=== PATIENT | female | born 2005 | race Caucasian/White ===

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

== ENCOUNTER 2023-11-14 23:06 | Observation (INO) | payer OTHER, SELFPAY ==
[2023-11-14] VITALS (54 sets, daily range): BP systolic 86–127; BP diastolic 21–110; PULSE 76–162; RESP 17–24; TEMP 36.3–38.3; O2SAT 92–100; BMI 27.7
[2023-11-14 14:56] LABS: Basophils Percent Auto 0.3 % (0.2-1.2); Eosinophils Percent Auto 0.5 % (0-4.4); Hematocrit 35.1 % (37.0-47.0); Hemoglobin 12.4 g/dL (12.0-15.0); Immature Granulocyte Absolute 0.02 K/mm3 (0.00-0.031); Immature Granulocyte Percent A 0.3 % (0-0.5); Lymphocytes Absolute Auto 1.41 K/mm3 (0.9-3.2); Lymphocytes Percent Auto 22.1 % (18.3-44.2); Mean Corpuscular HGB Conc 35.3 g/dl (32-36); Mean Corpuscular Volume 87.8 fl (80-100); Mean Platelet Volume 11.2 fl (7.4-10.4); Monocytes Absolute Auto 0.3 K/mm3 (0.1-0.6); Neutrophils Absolute Auto 4.6 K/mm3 (1.3-6.7); Neutrophils Percent Auto 71.8 % (45.5-73.1); Platelet Count Result 230 k/mm3 (150-375); Red Cell Distribution Width 14.3 % (11.5-14.5); White Blood Count 6.4 K/mm3 (4.5-10.0)
[2023-11-14 15:17] LABS: Hemoglobin A1C 4.7 % (<5.7)
[2023-11-14 15:25] LABS: Rapid Plasma Reagin Non-Reactive (NonReactive)
[2023-11-14] MEDS: miSOPROStol 200 MCG TABLET 400 MCG VAGINAL ×2 (15:37→19:36)
[2023-11-14 15:47] LABS: HIV 1/2 Ab P24 Ag Result Negative (Negative)
[2023-11-14 15:54] LABS: Free T4 Free Thyroxine 1.07 ng/mL (0.78-2.19)
[2023-11-14 16:45] LABS: Rubella IgG Antibody > 110.0 IU/ML
[2023-11-14 18:39] LABS: Amphetamine Screen Urine Negative (Negative); Barbiturate Screen Urine Negative (Negative); Benzodiazepines Screen Urine Negative (Negative); Cannabinoid Screen Urine Negative (Negative); Cocaine Screen Urine Negative (Negative); Methadone Screen Urine Negative (Negative); Opiate Screen Urine Negative (Negative); Phencyclidine Screen Urine Negative (Negative)
[2023-11-14] MEDS: HYDROcodone/acetaminophen (*CRX) 5-325 MG TABLET 1 TAB PO (19:42)
[2023-11-14] MEDS: fentaNYL CITRATE INJ (*CRX) 100 MCG/2 ML VIAL 50 MCG IV PUSH ×2 (19:57→20:17)
--- NOTE | 2023-11-14 21:16 | PM.IMHP ---
H&P: HPI History of Present Illness Date/Time: 11/14/23 16:45 Chief Complaint: miscarriage at 16 weeks Narrative: Patient is a 18 year old at 17w1d who presents for induction of labor indicated for demise. Patient presented for routine OB visit today and was found to have a miscarriage, measuring 13w4d by CRL. Demise was confirmed on ultrasound with no color flow in the fetus. She denies bleeding or contractions. She was counseled by Dr. Pisano in office regarding D&C vs induction of labor and she would like to proceed with induction of labor. complicated by bicornuate uterus and hx of c section x1. Review of Systems Review of Systems: All systems reviewed & are unremarkable except as noted in HPI and below PMFSH Past Medical History Medical History Anxiety Breech presentation Depression contractions Family History Family History Mother Psoriasiform eczema Social History Social History Social History: vaped to prior to and is now decreased to occasional Smoking status: Former smoker Second hand tobacco smoke exposure: Yes Substance use: former Do You Feel Safe in your Home?: Yes Lack of Transportation: No Lack of Food: Never True Current Housing: I Have Housing Concerned About Future Housing: No Difficulty Paying Gas/Electric Bills: No Difficulty Paying for Meds: No Currently Unemployed: No Education: High School Diploma/GED Difficulty w/ Childcare or Family Care: No Spiritual care concerns: No Meds Home Medications and Allergies Home Medications Medication Instructions Recorded Confirmed Type sertraline 50 mg tablet (Zoloft) 50 mg PO DAILY 11/14/23 11/14/23 History Allergies Allergy/AdvReac Type Severity Reaction Status Date / Time No Known Allergies Allergy Verified 10/06/20 05:15 Vital Signs Vital Signs - 24 hr 11/14/23 15:12 11/14/23 15:45 11/14/23 15:59 Temperature Pulse Rate 76 83 Blood Pressure 95/63 L 104/63 Pulse Oximetry Oxygen Delivery Room Air 11/14/23 16:01 11/14/23 16:06 11/14/23 16:15 Temperature 97.4 F L Pulse Rate 77 77 Blood Pressure 98/60 L 103/68 Pulse Oximetry Oxygen Delivery 11/14/23 16:30 11/14/23 16:45 11/14/23 17:01 Temperature Pulse Rate 112 H 98 Blood Pressure 115/80 127/110 H 109/78 Pulse Oximetry Oxygen Delivery 11/14/23 17:15 11/14/23 17:31 11/14/23 17:45 Temperature Pulse Rate 87 86 88 Blood Pressure 122/81 111/68 109/75 Pulse Oximetry Oxygen Delivery 11/14/23 19:42 11/14/23 19:57 11/14/23 20:00 Temperature Pulse Rate 91 88 Blood Pressure 116/90 115/84 Pulse Oximetry 100 Oxygen Delivery 11/14/23 20:02 11/14/23 20:07 11/14/23 20:12 Temperature Pulse Rate Blood Pressure Pulse Oximetry 100 100 98 Oxygen Delivery 11/14/23 20:16 11/14/23 20:19 11/14/23 20:22 Temperature Pulse Rate Blood Pressure Pulse Oximetry 92 100 98 Oxygen Delivery 11/14/23 20:27 11/14/23 19:50 11/14/23 20:30 Temperature 100.9 F H Pulse Rate 113 H Blood Pressure 126/96 H Pulse Oximetry 98 Oxygen Delivery 11/14/23 20:32 11/14/23 20:37 11/14/23 20:42 Temperature Pulse Rate Blood Pressure Pulse Oximetry 100 100 94 Oxygen Delivery 11/14/23 20:47 11/14/23 20:52 11/14/23 20:57 Temperature Pulse Rate Blood Pressure Pulse Oximetry 98 98 95 Oxygen Delivery 11/14/23 21:02 Temperature Pulse Rate Blood Pressure Pulse Oximetry 97 Oxygen Delivery Exam Const: General: comfortable and no acute distress HENMT: Mouth: Yes moist mucous membranes Resp: Effort & Inspection: normal respiratory effort Cardio: Rate: regular rate GI: Inspection: non-distended GI Palp: Yes Soft to pal
--- NOTE | 2023-11-14 21:32 | PM.OBPRVD ---
OB - Vaginal Delivery Note Procedure Delivery date: 11/14/23 Events: Other (miscarriage at 17 weeks) Induction method: Per Misoprostol Protocol Route of delivery: Episiotomy description: None Laceration Description: None Quantitative Blood Loss (ml): 200 Anesthesia type: IV Fentanyl Complications: Other complications (retained placenta) Narrative: See H&P and notes for details on patient's admission and labor. The patient reported increased pressure and on sterile vaginal exam, parts were palpated in the vagina and the fetus was expelled. The umbilical cord was cut and the fetus was wrapped in a blanket. The placenta did not deliver spontaneously with the fetus. The placenta was not easily palpated on vaginal exam following delivery. 200cc of clots were expressed with exam. Discussed medical vs surgical management of retained placenta, and patient desires surgical management with D&C. Risks and benefits were discussed. [place] Baby Date of : 11/14/23 Gestational Age by Date: 17 gender: Female Placenta delivery description: Curettage
--- NOTE | 2023-11-14 21:42 | WPDANESEPPF ---
Anes - Initial Pre Proc Eval Procedure: Suction D & C Date/Time: 11/14/23 21:42 Surgeon: Gm Toney MD Pre Op Diagnosis: retained placenta Pre Op Diagnosis: IUFD Patient Data Age: 18 Gender: F Height: 1.68 m Weight: 78 kg Last Vital Signs Temp 38.3 C H 11/14/23 19:50 Pulse 122 H 11/14/23 21:31 BP 112/66 11/14/23 21:31 Pulse Ox 97 11/14/23 21:41 O2 Del Method Room Air 11/14/23 15:12 Allergies Allergy/AdvReac Type Severity Reaction Status Date / Time No Known Allergies Allergy Verified 10/06/20 05:15 Home Medications Medication Instructions Recorded Confirmed Type sertraline 50 mg tablet (Zoloft) 50 mg PO DAILY 11/14/23 11/14/23 History Laboratory Tests 11/14/23 11/14/23 14:02 14:03 WBC 6.4 K/mm3 (4.5-10.0) RBC 4.00 L M/mm3 (4.2-5.4) Hgb 12.4 D g/dL (12.0-15.0) Hct 35.1 L % (37.0-47.0) MCV 87.8 fl (80-100) MCH 31.0 pg (26-34) MCHC 35.3 g/dl (32-36) RDW 14.3 % (11.5-14.5) Plt Count 230 k/mm3 (150-375) MPV 11.2 H fl (7.4-10.4) Immature Gran % (Auto) 0.3 % (0-0.5) Neut % (Auto) 71.8 % (45.5-73.1) Lymph % (Auto) 22.1 % (18.3-44.2) [place] % (Auto) 5.0 % (2.6-8.5) Eos % (Auto) 0.5 % (0-4.4) Baso % (Auto) 0.3 % (0.2-1.2) Lymph # (Auto) 1.41 K/mm3 (0.9-3.2) [place] # (Auto) 0.3 K/mm3 (0.1-0.6) Eos # (Auto) 0.0 K/mm3 (0-0.3) Baso # (Auto) 0.0 K/mm3 (0.0-0.1) Abs Immat Gran (auto) 0.02 K/mm3 (0.00-0.031) Absolute Neuts (auto) 4.6 K/mm3 (1.3-6.7) Absolute Nucleated RBC 0.000 K/mm3 (0.0-0.012) Nucleated RBC % 0.0 % (0.0-0.2) LA PTT Screen Pending LA PTT Comment Pending dRVVT Screen Pending Lupus Anticoag Interp Pending Hemoglobin A1c 4.7 % (<5.7) TSH 1.240 uIU/mL (0.465-4.680) Free T4 1.07 ng/mL (0.78-2.19) Urine Opiates Screen Negative (Negative) Urine Methadone Screen Negative (Negative) Ur Barbiturates Screen Negative (Negative) Ur Phencyclidine Scrn Negative (Negative) Ur Amphetamine Screen Negative (Negative) U Benzodiazepines Scrn Negative (Negative) Urine Cocaine Screen Negative (Negative) U Cannabinoids Screen Negative (Negative) Beta-2-GPI IgG Ab Pending Pending Beta-2-GPI IgA Ab Pending Pending Beta-2-GPI IgM Ab Pending Pending Phosphatidylserine Ab Pending Phosphatidylserine IgG Pending Phosphatidylserine IgA Pending Phosphatidylserine IgM Pending Anti-Cardiolipin IgG Ab Pending Pending Anti-Cardiolipin IgA Ab Pending Pending Anti-Cardiolipin IgM Ab Pending Pending RPR Non-reactive (NonReactive) CMV IgG Ab Pending CMV IgM Ab Pending HSV I Specific Ab Pending HSV II Specific Ab Pending HIV 1&2 Ab/P24 Ag 4thGn Negative (Negative) Parvovirus B19 IgG Intp Pending Parvovirus B19 IgM Intp Pending Rubella IgG Antibody > 110.0 IU/ML (10 - ) Toxoplasma IgG Ab Pending Toxoplasma IgM Ab Pending Add Miscellaneous Test Pending Blood Type O Positive Antibody Screen Negative Patient hx anesthesia problems: none Family hx anesthesia problems: none Results Review: All pre-operative results and documents have been reviewed as part of the pre-operative evaluation. [facility] Past Medical History Medical History Anxiety Breech presentation Depression contractions Family History Family History Mother Psoriasiform eczema Social History Social History Social
[2023-11-14] MEDS: LIDO 1%/EPINEPHRINE 1:100,000 50 ML VIAL 10 ML INFILTRATE (22:27)
--- NOTE | 2023-11-14 22:37 | PC.NURSE ---
Forensic Economist notified of delivery of demise.
[2023-11-14] MEDS: LACTATED RINGERS 1,000 ML 30 ML IV CONT (22:45)
--- NOTE | 2023-11-14 22:51 | W.PM.PROC2 ---
Procedure Note - Detailed Date of Procedure 11/14/23 Pre-op Diagnosis 17 week IUFD with retained placenta Post-op Diagnosis Same Procedure Performed suction D&C Surgeon Gm Toney MD Anesthesia General (with local paracervical block) Indications retained placenta s/p delivery of 17 week fetus Findings membranes visualized at external os at beginning of procedure; thin endometrial stripe on US at end of procedure with resolution of uterine bleeding Description of Procedure The patient was then taken to the operating room with IVFs running. She was placed in the dorsal supine position where she received general anesthesia without any difficulty.?? The patient was placed in the dorsal lithotomy position using johanna stirrups. EUA revealed the above findings. She was then prepped and draped in a normal sterile fashion. A time-out procedure was performed and all members of the OR team agreed on the patient and plan. A bivalved speculum was then inserted into the patient's vagina.?Prolapsed membranes were seen at the external os and ring forceps were used to tease the majority of the placental tissue out of the os intact. The anterior lip of the cervix was grasped with a ring forceps. The suction curette was tested outside the patient and found to be working properly.? The curette was then advanced into the intrauterine cavity and circumferentially removed.? All products of conception were removed until little tissue was seen passing through the tubing. A thin endometrial stripe was confirmed on BSUS.? The specimen was sent to pathology.? The ring forceps was removed from the anterior lip of the cervix, which was hemostatic.? The bivalve speculum was removed. The patient tolerated the procedure well.? Sponge, lap, needle, and instrument counts were correct X3.? The patient was awakened from anesthesia and taken to the recovery room in stable condition. Estimated Blood Loss 400 Pathology Yes Complications No immediate complications Condition Stable Disposition Floor
[2023-11-15] VITALS (28 sets, daily range): BP systolic 75–102; BP diastolic 10–74; PULSE 70–122; TEMP 36.3–36.5; O2SAT 97–100
[2023-11-15 05:20] LABS: Hematocrit 29.7 % (37.0-47.0); Hemoglobin 10.3 g/dL (12.0-15.0); Mean Corpuscular HGB Conc 34.7 g/dl (32-36); Mean Corpuscular Hemoglobin 31.2 pg (26-34); Platelet Count Result 218 k/mm3 (150-375); Red Cell Distribution Width 14.2 % (11.5-14.5); White Blood Count 11.7 K/mm3 (4.5-10.0)
--- NOTE | 2023-11-15 06:24 | PM.OBPNVD ---
OB - PN: Subj Subjective Date/time seen: 11/15/23 06:24 Interval history: POD#1 s/p delivery of 17 week miscarriage and D&C for retained placenta Doing well, pain controlled Baby Jeanna at bedside Bleeding minimal Tolerating PO intake OB - PN: Obj Data Labs 11/15/23 05:12 Labs: Laboratory Results - last 24 hr 11/14/23 11/14/23 11/15/23 14:02 14:03 05:12 WBC 6.4 11.7 H RBC 4.00 L 3.30 L Hgb 12.4 D 10.3 L Hct 35.1 L 29.7 L MCV 87.8 90.0 MCH 31.0 31.2 MCHC 35.3 34.7 RDW 14.3 14.2 Plt Count 230 218 MPV 11.2 H 11.0 H Immature Gran % (Auto) 0.3 Neut % (Auto) 71.8 Lymph % (Auto) 22.1 [place] % (Auto) 5.0 Eos % (Auto) 0.5 Baso % (Auto) 0.3 Lymph # (Auto) 1.41 [place] # (Auto) 0.3 Eos # (Auto) 0.0 Baso # (Auto) 0.0 Abs Immat Gran (auto) 0.02 Absolute Neuts (auto) 4.6 Absolute Nucleated RBC 0.000 Nucleated RBC % 0.0 Hemoglobin A1c 4.7 TSH 1.240 Free T4 1.07 Urine Opiates Screen Negative Urine Methadone Screen Negative Ur Barbiturates Screen Negative Ur Phencyclidine Scrn Negative Ur Amphetamine Screen Negative U Benzodiazepines Scrn Negative Urine Cocaine Screen Negative U Cannabinoids Screen Negative RPR Non-reactive HIV 1&2 Ab/P24 Ag 4thGn Negative Rubella IgG Antibody > 110.0 Blood Type O Positive Antibody Screen Negative OB - PN A/P Assessment and Plan (1) Spontaneous miscarriage: Code(s): O03.9 - Complete or unspecified spontaneous without complication Status: Acute Assessment and Plan: - diagnosed at 17 weeks, fetus measuring 13 weeks - s/p D&C for retained placenta following vaginal delivery - doing well this AM, no issues - afebrile, VSS, exam benign - Hgb stable, bleeding minimal - stable for discharge home today follow up in office in 2 weeks Time Spent With Patient Time: Total time spent is greater than 50% in coordination of care (as documented) at patient's floor/unit and/or counseling patient: Review of Systems Review of Systems: All systems reviewed & are unremarkable except as noted in HPI and below Exam Const: General: comfortable and no acute distress Orientation/consciousness: patient oriented x3 Resp: Effort & Inspection: normal respiratory effort GI: GI Palp: Yes Soft to palpation, No Tenderness to palpation present (GI) and No Guarding due to palpation present (GI)
--- NOTE | 2023-11-15 06:28 | PM.OBDSVD ---
DS: Admitting Diagnosis Discharge Date 11/15/23 Admitting Diagnosis miscarriage at 17 weeks DS: Discharge Diagnosis Discharge Diagnosis (1) Spontaneous miscarriage: Code(s): O03.9 - Complete or unspecified spontaneous without complication Status: Acute (2) S/P D&C (status post dilation and curettage): Code(s): Z98.890 - Other specified postprocedural states Status: Acute OB - DS: Summary OB Procedures : None OB Procedures Intrapartum: Spontaneous Vag Delivery, Curettage and Retained placenta OB Procedures: : None Peripartum Data Laceration Description: None Episiotomy description: None Procedures: Procedures Operation Date: 11/14/23 21:45 Actual Procedure Side Surgeon p Suction Dilation and Curretage Not Applicable Gm Toney MD Time Spent with Patient Time attestation: Total time spent providing and/or coordinating discharge services: DS: Data Data Completed and Pending Pending studies at discharge: Pending at discharge 11/14/23 21:00 Surgical [PTH] Routine 11/14/23 22:40 Surgical [PTH] Routine Labs on day of discharge: Labs from last 24 hours 11/15/23 11/14/23 11/14/23 05:12 14:03 14:02 WBC 11.7 H 6.4 RBC 3.30 L 4.00 L Hgb 10.3 L 12.4 D Hct 29.7 L 35.1 L MCV 90.0 87.8 MCH 31.2 31.0 MCHC 34.7 35.3 RDW 14.2 14.3 Plt Count 218 230 MPV 11.0 H 11.2 H Immature Gran % (Auto) 0.3 Neut % (Auto) 71.8 Lymph % (Auto) 22.1 [place] % (Auto) 5.0 Eos % (Auto) 0.5 Baso % (Auto) 0.3 Lymph # (Auto) 1.41 [place] # (Auto) 0.3 Eos # (Auto) 0.0 Baso # (Auto) 0.0 Abs Immat Gran (auto) 0.02 Absolute Neuts (auto) 4.6 Absolute Nucleated RBC 0.000 Nucleated RBC % 0.0 LA PTT Screen Pending LA PTT Comment Pending dRVVT Screen Pending Lupus Anticoag Interp Pending Hemoglobin A1c 4.7 TSH 1.240 Free T4 1.07 Urine Opiates Screen Negative Urine Methadone Screen Negative Ur Barbiturates Screen Negative Ur Phencyclidine Scrn Negative Ur Amphetamine Screen Negative U Benzodiazepines Scrn Negative Urine Cocaine Screen Negative U Cannabinoids Screen Negative Beta-2-GPI IgG Ab Pending Pending Beta-2-GPI IgA Ab Pending Pending Beta-2-GPI IgM Ab Pending Pending Phosphatidylserine Ab Pending Phosphatidylserine IgG Pending Phosphatidylserine IgA Pending Phosphatidylserine IgM Pending Anti-Cardiolipin IgG Ab Pending Pending Anti-Cardiolipin IgA Ab Pending Pending Anti-Cardiolipin IgM Ab Pending Pending RPR Non-reactive CMV IgG Ab Pending CMV IgM Ab Pending HSV I Specific Ab Pending HSV II Specific Ab Pending HIV 1&2 Ab/P24 Ag 4thGn Negative Parvovirus B19 IgG Intp Pending Parvovirus B19 IgM Intp Pending Rubella IgG Antibody > 110.0 Toxoplasma IgG Ab Pending Toxoplasma IgM Ab Pending Add Miscellaneous Test Pending Blood Type O Positive Antibody Screen Negative Discharge Plan Discharge Attending physician on discharge: Gm Toney Discharging Clinician: Gm Toney Patient Disposition: Home, Self-Care Activity: may shower, as tolerated and pelvic rest Diet: as tolerated Patient Instructions: Antibiotic Form Stand Alone Forms: General Discharge Information Follow-up/Referrals: Gm Toney MD [Physician] - 2 Weeks (With Dr. Toney or Dr. Pisano) Discharge Medications: New ibuprofen 600 mg Tablet 600 mg PO Q6H PRN (Reason: Pain Rated 4-6) Qty: 30 0RF Continued sertraline [Zoloft] 50 mg Tablet 50 mg PO DAILY Date of admission: 11/14/23 13:32 Primary Care Provider: UNKNOWN,DOCTOR Admitting Provider: Gm Toney Attending physician on admission: Gm Toney Condition: Stable
--- NOTE | 2023-11-15 10:15 | PC.NURSE ---
pt states that her significant other would be here around 1230 to pick her up.
--- NOTE | 2023-11-15 12:40 | PC.NURSE ---
discharge papers signed. All questions answered by RN. Pt states her significant other is no longer coming and that her mom is coming to pick her up now and she will not be here until 2pm. Pt understands to call out if she needs anything and let RN know when her ride is here.
[2023-11-17 14:38] LABS: Lupus dRVVT Screen 33 sec (< OR = 45); PTT-LA Screen 30 sec (< OR = 40)
[2023-11-17 16:08] LABS: CMV IgG Antibody <0.60 U/mL; CMV IgM Antibody <30.00 AU/mL; Toxoplasma IgG Antibody <7.20 IU/mL; Toxoplasma IgM Antibody <8.00 AU/mL
[2023-11-18 11:54] LABS: PS/PT AB IgG <9 U (< OR = 30); PS/PT AB IgM <9 U (< OR = 30)
[2023-11-18 13:27] LABS: PTT-LA Additional Testing Not Indicated
[2023-11-19 04:07] LABS: Anti Cardio Antibody IgM <2.0 MPL-U/mL; Anti Cardiolipin Antibody IgA <2.0 APL-U/mL; Anti Cardiolipin Antibody IgG <2.0 GPL-U/mL
[2023-11-23 04:44] LABS: Anti Cardio Antibody IgM <2.0 MPL-U/mL; Anti Cardiolipin Antibody IgA <2.0 APL-U/mL; Anti Cardiolipin Antibody IgG <2.0 GPL-U/mL
--- NOTE | 2023-11-28 07:25 | WPDHPUPDATE1 ---
History and Physical Update Update Date/Time: 11/28/23 07:25 History and Physical has been reviewed, including an updated exam of the patient. There are NO changes in the patient's condition. Patient is s/p delivery of 16 week fetus with retained placenta. Risks and benefits of suction D&C discussed with patient who is agreeable to procedure. Risks, benefits, and alternatives have been discussed and questions answered. Patient agrees to proceed with procedure.
== END 2023-11-15 14:33 | disposition home or self-care (01) | DRG 564 ==
PROVIDERS: Admitting Provider Obstetrics & Gynecology; Visit Provider Obstetrics & Gynecology
PROC: (CPT 59812; principal; 2023-11-14 21:45)
DX: O02.1 Missed abortion (principal); O34.02 Maternal care for unspecified congenital malformation of uterus, second trimester; Q51.3 Bicornate uterus; Z3A.17 17 weeks gestation of pregnancy; O73.0 Retained placenta without hemorrhage
CPT/HCPCS: 59812; 59899; 36415; 80307; 83036; 84439; 84443; 85025; 85027; 85613; 85730; 86146; 86147; 86592; 86644; 86645; 86695; 86696; 86703; 86747; 86762; 86777; 86850; 86900; 86901; 88305; A9270; G0379; G0432; J0330; J1100; J2210; J2250; J2405; J2704; J3010; J7060; J7120

== ENCOUNTER 2024-04-20 14:51 | Outpatient (CLI) | payer OTHER, SELFPAY ==
[2024-04-20 15:11] LABS: Basophils Percent Auto 0.5 % (0.2-1.2); Eosinophils Absolute Auto 0.1 K/mm3 (0-0.3); Eosinophils Percent Auto 1.2 % (0-4.4); Hematocrit 33.5 % (37.0-47.0); Hemoglobin 10.1 g/dL (12.0-15.0); Immature Granulocyte Absolute 0.02 K/mm3 (0.00-0.031); Immature Granulocyte Percent A 0.3 % (0-0.5); Lymphocytes Percent Auto 27.8 % (18.3-44.2); Mean Corpuscular HGB Conc 30.1 g/dl (32-36); Mean Corpuscular Volume 76.3 fl (80-100); Mean Platelet Volume 10.7 fl (7.4-10.4); Monocytes Absolute Auto 0.4 K/mm3 (0.1-0.6); Monocytes Percent Auto 6.6 % (2.6-8.5); Neutrophils Absolute Auto 4.1 K/mm3 (1.3-6.7); Neutrophils Percent Auto 63.6 % (45.5-73.1); Platelet Count Result 261 k/mm3 (150-375); Red Blood Count 4.39 M/mm3 (4.2-5.4); Red Cell Distribution Width 19.1 % (11.5-14.5); White Blood Count 6.5 K/mm3 (4.5-10.0)
[2024-04-20 15:35] LABS: Iron 29 ug/dL (37-170)
[2024-04-20 15:45] LABS: Percent Iron Saturation 7 % (20-50)
[2024-04-20 16:11] LABS: Ferritin 4.07 ng/mL (6.24-137)
--- OUTSIDE RECORDS SUMMARY | 2024-04-22 19:16 | XMS_ITS | Continuity of Care Document ---
Author Organization [facility] Address [address] [place] [address] Phone Care Team Providers Care Centerless Grinder Name Role Phone Keon Camejo Unavailable Unavailable Advance Directives Directive Yes / No Effective Date File Name No Information Encounters Encounter Description Practice Location Reason(s) For Visit Diagnoses Date Provider Providers Copied on Encounter [facility], [address] [place] [address], [facility], tel:[phone] *[facility] No Information Bashir Herbert. [address] [place] [address], [facility], . tel:[phone] Family History Family Member Type Diagnosis Age At Onset No Information Payers Payer name Insurance type Covered green party ID Authoriza tion(s) No Information Social History Type Description Quantity Date Captured Comments Sex Female Smoking Status No Information Chief Complaint And Reason For Visit No Information Reason For Referral Reason For Referral No Information History Of Present Illness Encounter Date Complaint History Of Prese nt Illness No Information Functional Status Date Functional Assessmen t No Information Instructions Date Instruction Additional Infor mation No Information Assessments Type Assessment Date No Information Patient Care Teams Name Effective Dates (start - stop) Status Members No Information
== END 2024-04-20 14:52 | disposition home or self-care (01) ==
LOC: ANHLAB 14:52
PROVIDERS: Visit Provider Nurse Practitioner Family
DX: K62.5 Hemorrhage of anus and rectum (principal); D64.9 Anemia, unspecified
CPT/HCPCS: 36415; 82728; 83540; 83550; 85025

== ENCOUNTER 2024-05-11 00:53 | Day surgery (SDC) | payer OTHER, SELFPAY ==
[2024-04-29 11:53] VITALS: BMI 26.6
--- OUTSIDE RECORDS SUMMARY | 2024-05-11 00:56 | XMS_ITS | Data Portability ---
Author Organization [facility] Address [address] [place] [address] [place] [address] Assessment Encounter Date Assessment Date Assessment LastModified by Organization Details LastModified Time 11/14/2023 11/14/2023 Patient is __17_weeks . Discussed plan. Not available 11/14/2023 12:26:47 Plan of Treatment Reminders Order Date Submit Date Provider Last Modified By Organization Details Last Modified Time Details Appointments None recorded. Lab beta-HCG, quantitativ e, serum or plasma 2023 024 [facility] (Lab), [address], [place], [address], 4 09:20:25 test, urine 2023 024 [facility], [address], [place], [address], 4 14:21:31 Referral gastroenter ologist referral 2024 025 [facility], [address], [place], [address], 5 04:09:59 Procedures None recorded. Surgeries None recorded. Imaging None recorded. Medication Orders Mirena 21 mcg/24 hr (up to 8 years) 52 mg intrauterin e device 2023 024 [email or web address] Not available 4 09:06:15 Patient TargetsNo targets recorded. Patient InstructionsNo instructions recorded. Reason for Referral Inspection Supervisor Referral for Hematochezia Referring Physician: Desmond Hernández, COOK MAYONNAISE, Encounter Date: 04/13/2024 Results Created Date Observation Date Name Description Value Unit Range Abnormal Flag Note LastModifiedBy Organization Detail LastModifiedTime 01/02/20 24 01/02/2024 BHCG, QUANT ITATI VE B-HCG 0.9 mIU/m L This assay was perfo rmed using [employer] ratio n reage nts and test kits. Value s obtai jose with other assay metho ds or kits canno t be used inter castellanos eably . Refer ence Range s: Non-p regna nt, preme nopau stephen women : 0.0-5 .3 mIU/m L Postm enopa usal women : 0.0-7 .0 mIU/m L Ilsa l Pregn madeline: Gesta herminio l Age bHCG Conc. - mIU/m L 3 Weeks 5.8 - 71.7 4 Weeks 9.5 - 750 5 Weeks 217-7 138 6 Weeks 158 - 31,79 5 7 Weeks 3,697 - 162,5 63 8 Weeks 32,06 5 - 149,5 71 9 Weeks 63,80 3 - 151,4 10 10 Weeks 46,50 9 - 186,9 77 12 Weeks 27,83 2 - 210,6 12 14 Weeks 13,95 0 - 62,53 0 15 Weeks 12,03 9 - 70,97 1 16 Weeks 9,040 - 56,45 1 17 Weeks 8,175 - 55,86 8 18 Weeks 8,099 - 58,17 6 Not Available [facility] (Lab) [address], [place], [address], 01/03/2024 09:20:25 01/08/20 24 01/08/2024 pregn madeline test, urine HCG negati ve Not Available [facility] [address], [place], [address], 01/08/2024 14:21:20 11/14/19 24 11/14/2023 US, obste tric, limit ed No observ ation record ed. [facility] [address], [place], [address], 11/14/2023 13:33:45 11/14/19 24 11/14/2023 US, obste tric, limit ed No observ ation record ed. [email or web address], [place], [address], 11/15/2023 22:49:05 Result Notes None recorded. Problems Name Problem SNOMED Code Status Onset Date Resolution Date Notes Provider Name and Address Organization Details Recorded Time Pregnanc y 13583254 Completed 202311/17/2023 Sabrina guevara, [facility] 4 15:21:20 Mixed anxiety and depressi ve disorder [id number] Completed restart zoloft Rhys Pisano MD [address], [place], [address], [facility] 4 11:26:45 Bicornua te uterus 43041371 Completed Rhys Pisano MD [address], [place], [address], [facility] 4 11:26:45 Deliveri es by [id number] Completed consider ing Rhys Pisano MD [address], [place], [address], [facility] 4 11:26:45 Problem Notes None recorded. Procedures Surgical History Date Name Laterality Status Provider Name and Address Organization Details Recorded Time 4 IUD Insertion completed Rhys Pisano MD [address], [place], [address], [facility] 01/08/2024 18:37:46 2 Caesarean Section completed Nicole Georges [facility] 09/30/2023 11:10:12 Imaging Results Imaging Date Name Status LastModified by Organiz ation Details LastModified Time 11/14/2023 [facility], obstetric, limited [facility] [address], [place], [address], 11/14/2023 13:33:45 11/14/2023 US, obstetric, limited completed [email or web address], [place], [address], 11/15/2023 22:49:05 Procedure Notes None recorded. Medical Equipment None Reported. Allergies No known drug allergies Medications Name Sig Start Date Stop Date Status Note LastModified by Organization Details LastModified Time Mirena 21 mcg/24 hr (up to 8 years) 52 mg intrauterin e device Take 1 device by intrauter ine route. 2023 active Not Available Not Available Not Avai lable ondansetron HCl 8 mg tablet TAKE 1 TABLET BY MOUTH TWICE DAILY 01/07 completed Not Available Not Available Not Available phenazopyri dine 200 mg tablet TAKE 1 TABLET BY MOUTH THREE TIMES A DAY 09/29 completed Not Available Not Available Not Available ondansetron 8 mg disintegrat ing tablet DISSOLVE 1 TABLET ON THE TONGUE TWICE DAILY 01/01 completed Not Available Not Available Not Available tamsulosin 0.4 mg capsule TAKE 1 CAPSULE BY MOUTH EVERY DAY 09/29 completed Not Available Not Available Not Available cephalexin 500 mg capsule TAKE 1 CAPSULE BY MOUTH TWICE A DAY 09/29 completed Not Available Not Available Not Available ibuprofen 600 mg tablet TAKE 1 TABLET BY MOUTH EVERY 6 HOURS NEEDED FOR PAIN RATED 4-6 04/13 completed Not Available Not Available Not Available sertraline 50 mg tablet TAKE 1 TABLET BY MOUTH EVERY DAY 04/13 completed Not Available Not Available Not Available escitalopra m 10 mg tablet TAKE 1 TABLET BY MOUTH DAILY active Not Available Not Available No t Available nitrofurant oin monohydrate /macrocryst als 100 mg capsule 04/13 completed Not Available Not Available Not Available Zurzuvae 25 mg capsule Take 2 capsules every day by oral route for 14 days. 01/01 completed Not Available Not Available Not Available Vitals Date Recorded Body height Body mass index (BMI) Percentile per age and sex Body mass index (BMI) Body weight Systolic blood pressure Diastolic blood pressure Provider Name and Address Organization Details Last Updated DateTime 4 167.64 cm 88 % 27.8 kg/m2 65102.8 8764 g 115 mm[Hg] 78 mm[Hg] Dalila Bethea [facility] 4 12:17:30 Date Recorded Body height Body mass index (BMI) Body mass index (BMI) Percentile per age and sex Body weight Systolic blood pressure Diastolic blood pressure Provider Name and Address Organization Details Last Updated DateTime 4 167.64 cm 27.7 kg/m2 88 % 54385.4 5 g 107 mm[Hg] 69 mm[Hg] Kate Vanegas [facility] 4 12:54:39 Date Recorded Body height Body mass index (BMI) Body mass index (BMI) Percentile per age and sex Body weight Systolic blood pressure Diastolic blood pressure Provider Name and Address Organization Details Last Updated DateTime 4 167.64 cm 27.8 kg/m2 88 % 49918.8 9 g 106 mm[Hg] 69 mm[Hg] Beckie Lees [facility] 4 10:29:15 Date Recorded Body height Body mass index (BMI) Body mass index (BMI) Percentile per age and sex Body weight Systolic blood pressure Diastolic blood pressure Provider Name and Address Organization Details Last Updated DateTime 4 167.64 cm 27.4 kg/m2 87 % 19505.7 g 125 mm[Hg] 86 mm[Hg] Nicole Georges [facility] 4 14:20:35 Date Recorded Body height Body mass index (BMI) Body weight Systolic blood pressure Diastolic blood pressure Provider Name and Address Organization Details Last Updated DateTime 04/13/2024 167.64 cm 28 kg/m2 97613.92 g 118 mm[Hg] 82 mm[Hg] ELOY Mccauley [facility] 5 15:13:31 Social History Question Answer Notes LastModified by Organizat ion Details LastModified Time Tobacco Smoking Status Current Every Day Smoker currently trying to quit Nicole Georges [facility] 09/30/2023 11:08:22 What Is Your Level Of Alcohol Consumption? None Information not available 09/30/2023 If You Are , What Was Your Level Of Alcohol Consumption Prior To ? None [email or web address] Information not available 04/13/2024 Are You Blind Or Do You Have Difficulty Seeing? No Information not available 09/30/2023 What Is Your Level Of Caffeine Consumption? Moderate Information not available 09/30/2023 In The 14 Days Before Symptom Onset, Have You Had Close Contact With A Laboratory-confir med COVID-19 While That Case Was Ill? No Information not available 09/30/2023 In The 14 Days Before Symptom Onset, Have You Had Close Contact With A Person Who Is Under Investigation For COVID-19 While That Person Was Ill? No Information not available 09/30/2023 Have You Been To An Area Known To Be High Risk For COVID-19? No Information not available 09/30/2023 Are You Currently Employed? Yes Information not available 09/30/2023 Are You Deaf Or Do You Have Serious Difficulty Hearing? No Information not available 09/30/2023 What Type Of Diet Are You Following? REGULAR Information not available 09/30/2023 What Is The Highest Grade Or Level Of School You Have Completed Or The Highest Degree You Have Received? [id number] Information not available 09/30/2023 Are There Any Guns Present In Your Home? No Information not available 09/30/2023 What Is Your Current Pack Years? [email or web address] Information not available 04/13/2024 Do You Use Protection During Sex? No Information not available 09/30/2023 Do You Use Your Seat Belt Or Car Seat Routinely? Yes Information not available 09/30/2023 Are You Sexually Active? Yes Information not available 09/30/2023 Do You Have Smoke And Carbon Monoxide Detectors In Your Home? Yes Information not available 09/30/2023 How Much Tobacco Do You Smoke? No [email or web address] Information not available 04/13/2024 Do You Feel Stressed (tense, Restless, Nervous, Or Anxious, Or Unable To Sleep At Night)? [id number] [email or web address] Information not available 12/02/2023 Do You Use Any Illicit Or Recreational Drugs? No Information not available 09/30/2023 Do You Use Sunscreen Routinely? Yes Information not available 09/30/2023 Has Tobacco Cessation Counseling Been Provided? No [email or web address] Information not available 04/13/2024 Do You Or Have You Ever Used Any Other Forms Of Tobacco Or Nicotine? No [email or web address] Information not available 04/13/2024 Sex: Female Functional Status Question Answer Note LastModified by Organizat ion Details LastModified Time Do you have difficulty walking or climbing stairs? No Information not available 09/30/2023 Are you able to walk? [email or web address] Information not available 09/30/2023 Are you able to care for yourself? Yes Information not available 09/30/2023 Do you have difficulty dressing or bathing? No Information not available 09/30/2023 What is your exercise level? Moderate Information not available 09/30/2023 Mental Status None recorded. Family History Nothing Reported. Medical History Condition Response Allergies (Food, seasonal, environmental ) N Other N Breast Cancer N Drug/Latex Allergies/Reactions N Blood Transfusion N Dermatologic Disorders N Lung Disease N Defects or Inherited Disease N Breast Problem N Gestational Diabetes N Hematologic disorders N Anesthesia Complications N History of STI N Deep Vein Thrombosis N Polycystic ovary syndrome N Anxiety Disorder Y Autoimmune disease N Arthritis N Infertility N Polyps N Acid Reflux (GERD) N History of abnormal pap N Cancer N Stroke N Varicosities N Neurologic/Epilepsy N Endometriosis N High Cholesterol N Headaches N Fibromyalgia N Kidney Disease N Heart Problems N Kidney or Bladder Problems N Thyroid Problems N GI Problems N Eating Disorder N Anemia N Art (IVF or FET) N Psychiatric Illness N Ovarian Cancer N Diabetes N Pulmonary (TB, Asthma) N Hepatitis/Liver Disease N No Past Medical History N Eczema N Urinary Tract Infection N Abuse/Domestic Violence N Asthma N Trauma/Violence N Depression/ depression Y Heart Disease N Pre-Eclampsia N Hypertension N Osteoporosis N Thrombophilias N Gynecological History Statement/Question Response Flow Heavy Date of LMP 03/18/2024 On BCP's at Conception? Y Was last menstrual period normal N STIs/STDs N HPV Vaccine Y Duration of Flow (days) 5 Current Control Method IUD Are cycles usually normal N Date of Last Colonoscopy Frequency of Cycle (Q days) 45 Most Recent Bone Density Sexually Active? Y Menses Monthly Y Date of DEXA bone scan Age of first menstrual cycle 11 Date of Last Pap Smear Sexual Problems? N LMP Approximate Obstetrics History GPAL:G 2 P 1 0 0 1 Type Value Full Term 1 Living 1 Total 2 Past Encounters Encounter ID Performer Location Encounter Start Date Encounter Closed Date Diagnosis/Indication Diagnosis SNOMED-CT Code Diagnosis ICD10 Code Diagnosis Note [id number] [facility] [address],[place] [address] 09/30/2023 09:44:48 09/30/2023 11:08:55 screening [id number] Z36.87 Z3A.10 [id number] Nicole [facility] [address],[place] [address] 09/30/2023 09:46:52 09/30/2023 11:58:43 Nausea and vomiting 25984456 R11.2 Amenorrhea 32822363 N91. 2 this patient is a 18-year-ol d female who presents for amenorrhea . She is a positive test. Ultrasound revealed a 1st trimester gestation. Patient has no complaints . We talked about early care. Talked about genetic screening. We talked about her ultrasound results. We talked about the 12 week ultrasound that has genetic screening components . She was given recommenda tions on exercise, diet, over-the-c ounter medication s. We reviewed her obstetric history. We reviewed her medical history. We reviewed her social history. She will begin routine care at her next visit. bicornuate uterus and previous , [id number] [facility] [address],[place] [address] 10/13/2023 09:22:56 10/13/2023 11:48:24 Gestation period, 12 weeks 87549112 Z3A.12 [id number] Rhys Pisano MD [facility] [address],[place] [address] 10/13/2023 09:23:20 10/13/2023 11:30:27 Routine care 052048725 Z34.90 this patient is a 18-year-ol d multiparou s female at 12 weeks' gestation who presents for initial care. She has a history of term vaginal births. Her medical, surgical, obstetric history is unremarkab le. She is vaccinated . She was given precaution s recommenda tions for . We talked about vaccines in . Talked about care in detail. She is having genetic testing. She had a normal 12 week ultrasound . To begin routine care. Nausea and vomiting 1693 1999 R11.2 Depressive disorder 3548 9007 F32.A [id number] Rhys Pisano MD [facility] [address],[place] [address] 11/14/2023 12:03:14 11/14/2023 12:27:36 Gestation period, 17 weeks 54412990 Z3A.17 continue vitamin [id number] Alexa Monge [facility] [address],[place] [address] 11/14/2023 12:44:13 11/14/2023 13:46:30 Missed miscarriage 11071129 Z3A.13 [id number] DESMOND HERNÁNDEZ MD [facility] [address],[place] [address] 12/02/2023 12:49:16 12/03/2023 09:38:11 Complete miscarriage 571462096 O03.9 - s/p of 16 week IUFD and D&C for retained placenta 11/14- meeting postoperat ray milestones - no restrictio ns- patient to use backup contracept ion method until IUD placement depression 58 512567 F53.0 - transition ed from zoloft to lexapro after delivery- has not yet noticed effects after 2 weeks of lexapro- discussed 4-6 week initiation period- will attempt to order zurzuvae again as patient would still benefit and desires initiation - no SI/HI- rtc 1 month for mood check Contracept ion care management 518120319 Z30.9 Discussed with patient risks, benefits, and alternativ es of contracept ion. Discussed all options, including natural family planning, condoms, combined oral contracept ish, contracept ray patch, Nuva-ring, Depo-Prove ra, Nexplanon, intrauteri ne device, and sterilizat ion (tubal ligation, vasectomy) . Advised that of the above listed options, only condoms can prevent sexually transmitte d infections and that condoms can be used together with any form of contracept ion. Patient has no contraindi cations. After extensive counseling , patient at this time desires mirena IUD. [id number] DESMOND HERNÁNDEZ MD [facility] [address],[place] [address] 01/02/2024 10:18:32 01/02/2024 11:05:08 test positive 730524835 Z32.01 - patient reports unprotecte d intercours e since delivery- LMP end of October- will confirm with [facility]- instructed to use condoms if sexually active [id number] Rhys Pisano MD [facility] [address],[place] [address] 01/08/2024 14:00:22 01/09/2024 03:41:00 Insertion of intrauterine contraceptive device 04296827 Z30.430 IUD was inserted without complicati ons. She tolerated well. [id number] DESMOND HERNÁNDEZ MD [facility] [address],[place] [address] 04/13/2024 15:06:31 04/14/2024 10:44:53 Hematochezia 788094271 K92.1 - patient reports bright red blood per rectum with every bowel movement since most recent 4 months ago- no vaginal bleeding- no pain with bleeding, does report straining and constipati on, with bowel movement once every 1-2 weeks- has tried increased fiber intake, miralax, and preparatio n H cream without improvemen t- recommend referral to GI for possible colonoscop y Health Concerns Section Related Observation LastModified by Organization Detai ls LastModified Time None Recorded Concern Status LastModified by Organization Details LastModified Time None Recorded Advance Directives Directive None Recorded Payers Encounter Date Sequence Insurance Name Policy Number Policy Caldera Covered Member ID Caldera Member ID Guarantor Name 11/14/2023 1 [employer] [facility] [facility] (MEDICAID HMO) [id number] Jewell Kahn [id number] Jewell Kahn 12/02/2023 1 [employer] (MEDICAID HMO) [id number] Rositay Femi [id number] Robertzlin Femi 01/02/2024 1 [employer] [facility] [facility] (MEDICAID HMO) [id number] Rositay Femi [id number] McFernandozy Femi 01/08/2024 1 [employer] [facility] [facility] (MEDICAID HMO) [id number] Jewell Femi [id number] Robertzy Femi 04/13/2024 1 [facility] [facility] [facility] (MEDICAID HMO) [id number] 0003 Rositay Femi [id number] Jewell Kahn Notes Date Note Type Note Provider Name and Address Organization Details Recorded Time 12/02/2023 text/html Presents for follow up after delivery of IUFD at 16 weeks and D&C for retained placenta 11/14. Patient doing well, no complaints. Pain resolved. Tolerating general diet. Denies nausea or vomiting. No shortness of breath or chest pain. Ambulating. Minimal brown discharge. Was also prescribed lexapro, which she says has not yet started working and Zurzuvae for depression, however was told it was not affordable for her. Reports mood depressed but stable, no SI/HI. Would like to start Zurzuvae still if possible. Desires IUD insertion as she does not desire in the near future. Has not used an IUD before. No contraindications . DESMOND HERNÁNDEZ MD [address], [place], [address], [facility] 12/02/2023 18:57:12 01/02/2024 text/html Patient presents for IUD insertion. Her test is faintly positive. She denies recent intercourse however she has had unprotected intercourse since her delivery. LMP end of October. DESMOND HERNÁNDEZ MD [address], [place], [address], [facility] 01/02/2024 11:00:29 01/08/2024 text/html Patient presents for IUD insertion. The procedure was explained to the patient in detail. She understands the procedure. She understands the risks, benefits, and alternatives. She has completed the informed consent process and is ready to proceed. Rhys Pisano MD [address], [place], [address], [facility] 01/08/2024 18:38:21 04/13/2024 text/html Patient reports hx of hemorrhoids during , however these have not resolved since most recent miscarriage. She does report constipation, with bowel movements once a week. She has tried high fiber diet, laxatives, and preparation H cream. She now reports bloody bowel movements with every movement. No nausea or vomiting. Patient also reports dark stools. DESMOND HERNÁNDEZ MD [address], [place], [address], [facility] 04/13/2024 23:08:06 OBGyn Episode Ob Episode Information Episode Created Date Number of Fetuses Patient Bloodtype Patient rh Status Prepregnancy Weight lbs Domestic Partner Domestic Partner Phone Father Name Bucket Hooker Status 10/13/19 24 1 O Positive Kendall Sanchez n CLOSED Fetus Data First Name Last Name Admitted to NICU Weight (g) Sex Living Outcome Pediatric Complications Fetus ID Race Codes Race Delivery Type F Demise [id number] Problems Problem Notes Problem Name Start Date End Date Resolution Snomed Code Not e Mixed anxiety and depressive disorder [id number] restart zoloft Bicornuate uterus 35887710 Deliveries by 04 considering Pedro Calculation Initial Pedro Date Initial Exam Date Initial Exam Provider Initial Ultrasound Date Last Menstrual Period Date Ultra Sound Weeks Gestation 04/09/2024 10/13/2023 09/30/2023 07/04/2023 10 Eighteen To Twenty Week Pedro Update Ultra Sound Date Fundal Height At Umbil Quickening Date Ultra Sound Latest Weeks Gestation Final Pedro Confirmed By Final Pedro Confirmed Date Final Pedro Date Ultra Sound Latest Days Gestation 0 [email or web address] 10/13/2023 04/22/19 25 0 Pre-jin Flowsheet Flowsheet Date 10/13/2023 Roblero Score Blood Edema Fundus Height Fundus Units Glucose Ketones Leukocytes Nitrite Labor Signs Protein Cervic Dilation Cervic Effacement Cervic Station neg none 12 Type Weight in lbs Pre/Post Dialysis Refused Weight 175.655138363671 BP Diastolic BP Location Tested BP Systolic BP Type 68 L arm 107 sitting Fetus Heart Rate Present A 154 Fetus Movement A No Comments this patient is a 18-year-ol d multiparous female at 12 weeks' gestation who presents for initial care. She has a history of term vaginal births. Her medical, surgical, obstetric history is unremarkable. She is vaccinated. She was given precautions recommendations for . We talked about vaccines in . Talked about care in detail. She is having genetic testing. She had a normal 12 week ultrasound. To begin routine care. Flowsheet Date 11/14/2023 Roblero Score Blood Edema Fundus Height Fundus Units Glucose Ketones Leukocytes Nitrite Labor Signs Protein Cervic Dilation Cervic Effacement Cervic Station none Type Weight in lbs Pre/Post Dialysis Refused 172.291653202584 BP Diastolic BP Location Tested BP Systolic BP Type 78 115 Fetus Heart Rate Present Fetus Movement A Yes Comments +FM, doing well, no complain ts, us for FHR education and precautions f/u 3 weeks anatomy scan Flowsheet Date 11/14/2023 Roblero Score Blood Edema Fundus Height Fundus Units Glucose Ketones Leukocytes Nitrite Labor Signs Protein Cervic Dilation Cervic Effacement Cervic Station Type Weight in lbs Pre/Post Dialysis Refused BP Diastolic BP Location Tested BP Systolic BP Type Fetus Heart Rate Present Fetus Movement Comments Menstrual History Last Menstrual Date Menses Monthly On Bcp Conception Prior Menses Frequency Hcg Plus Date Menarche Onset Age 0407/04/2023 true 28 13 Genetic Screening And Infection History Question Response Note Mental Retardation/Autism false Patient's Age Will Be 35 Years Or Older At Estim ated Date of Delivery false Thalassemia (Turkish, Latvian, Mediterranean, Or Background): MCV < 80 false Neural Tube Defect (Meningomyelocele, Spina Bifi da, Or Anencephaly) false Congenital Heart Defect false Down Syndrome false Fahad-Sachs (eg, Rastafari, Cajun, Armenian-Metter) f alse Murali Disease false Sickle Cell Disease Or Trait () false Hemophilia Or Other Blood Disorders false Muscular Dystrophy false Cystic Fibrosis false Sanborn's Chorea false Intellectual Disability/Autism false If Yes, Was Person Tested For Fragile X? false Other Inherited Genetic Or Chromosomal Disorder false Maternal Metabolic Disorder (eg, Type 1 Diabetes , PKU) false Patient Or Baby's Father Had A Child With Defects Not Listed Above false Recurrent Loss, Or A Stillbirth false Medications (including Suppl ements, Vitamins, Herbs, OTC Drugs), Illicit/Recreational Drugs, Alcohol false If Yes, Agent(s) And Strength/Dosage false Any Other Genetic History false Live With Someone With TB Or Exposed To TB false Patient Or Partner Has History Of Genital Herpes false Rash Or Viral Illness Since Last Menstrual Perio d false History Of STD, Gonorrhea, Chlamydia, HPV, Syphi lis false Other Infection History false History of HIV false History of Hepatitis false Prior GBS-infected child false Hemoglobinopathy Or Carrier false Other Structural Defect false Recent Travel History Outside of Country false Delivery Information Delivery Date Delivery Type Labor Anesthesia Weeks Gestation Incision Type Labor Labor Length Hrs Delivered By Post Complications Tubal Sterilization Discharge Date Comments 4 17.1 Discharge Information Feeding Method Contraceptive Method Maternal HG B and HCT Levels Ob Episode Information Episode Created Date Number of Fetuses Patient Bloodtype Patient rh Status Prepregnancy Weight lbs Domestic Partner Domestic Partner Phone Father Name Bucket Hooker Status 09/30/19 24 1 CLOSED Fetus Data First Name Last Name Admitted to NICU Weight (g) Sex Living Outcome Pediatric Complications Fetus ID Race Codes Race Delivery Type 3401.94 F Full Term [id number] Primary Pedro Calculation Initial Pedro Date Initial Exam Date Initial Exam Provider Initial Ultrasound Date Last Menstrual Period Date Ultra Sound Weeks Gestation 0 Eighteen To Twenty Week Pedro Update Ultra Sound Date Fundal Height At Umbil Quickening Date Ultra Sound Latest Weeks Gestation Final Pedro Confirmed By Final Pedro Confirmed Date Final Pedro Date Ultra Sound Latest Days Gestation 0 0 Menstrual History Last Menstrual Date Menses Monthly On Bcp Conception Prior Menses Frequency Hcg Plus Date Menarche Onset Age Delivery Information Delivery Date Delivery Type Labor Anesthesia Weeks Gestation Incision Type Labor Labor Length Hrs Delivered By Post Complications Tubal Sterilization Discharge Date Comments 2 38 Discharge Information Feeding Method Contraceptive Method Maternal HG B and HCT Levels
--- OUTSIDE RECORDS SUMMARY | 2024-05-11 00:56 | XMS_ITS | Continuity of Care Document ---
Author Organization [facility] Address [address] [place] [address] Phone Care Team Providers Care Science Technician Name Role Phone Keon Camejo Unavailable Unavailable Advance Directives Directive Yes / No Effective Date File Name No Information Encounters Encounter Description Practice Location Reason(s) For Visit Diagnoses Date Provider Providers Copied on Encounter [facility], [address] [place] [address], [facility], tel:[phone] *[facility] No Information Bashir Herbert. [address] [place] [address], [facility], . tel:[phone] Family History Family Member Type Diagnosis Age At Onset No Information Payers Payer name Insurance type Covered libertarian ID Authoriza tion(s) No Information Social History [...]
[2024-05-11 13:39] VITALS: BP 119/75; PULSE 110; RESP 18; TEMP 36; O2SAT 100
[2024-05-11 13:43] LABS: BEDSIDEPREGUCG Negative (Negative)
[2024-05-11] MEDS: LACTATED RINGERS 1,000 ML 150 ML IV CONT (13:50)
--- NOTE | 2024-05-11 14:33 | PM.IMHP ---
H&P: HPI History of Present Illness Date/Time: 05/11/24 14:33 Chief Complaint: Rectal bleeding-GERD Narrative: the patient has been experiencing intermittent rectal bleeding, bright red type for the past few months. In addition, she suffers from heartburn almost every day and has been on PPIs intermittently. There is no history Review of Systems Review of Systems: All systems reviewed & are unremarkable except as noted in HPI and below PMFSH Past Medical History Medical History Breech presentation contractions Depression Anxiety Family History Family History Mother Psoriasiform eczema Social History Social History Social History: vaped to prior to and is now decreased to occasional Smoking status: Former smoker Tobacco type: e-cigarettes/vaping Second hand tobacco smoke exposure: Yes Alcohol intake: never Alcohol use details: Social Substance use: never Substance use type: does not use Do You Feel Safe in your Home?: Yes Lack of Transportation: No Lack of Food: Never True Current Housing: I Have Housing Concerned About Future Housing: No Difficulty Paying Gas/Electric Bills: No Difficulty Paying for Meds: No Currently Unemployed: No Education: High School Diploma/GED Difficulty w/ Childcare or Family Care: No Living arrangements: with family Spiritual care concerns: No Meds Home Medications and Allergies Home Medications ?Medication ?Instructions ?Recorded ?Confirmed ?Type escitalopram oxalate 10 mg tablet 10 mg PO DAILY #60 tabs 11/15/23 05/11/24 Rx (Lexapro) ibuprofen 600 mg tablet 600 mg PO Q6H PRN Pain Rated 4-6 11/15/23 04/29/24 Rx #30 tabs omeprazole 40 mg capsule,delayed 40 mg PO DAILY #30 caps 04/20/24 05/11/24 Rx release Allergies Allergy/AdvReac Type Severity Reaction Status Date / Time No Known Allergies Allergy Verified 05/11/24 13:33 Vital Signs Vital Signs - 24 hr 05/11/24 13:39 Temperature 96.8 F L Pulse Rate 110 H Respiratory Rate 18 Blood Pressure 119/75 Pulse Oximetry 100 Oxygen Delivery Room Air Exam Const: General: cooperative and healthy appearing Resp: Effort & Inspection: normal respiratory effort and able to speak in complete sentences Auscultation: clear to auscultation bilaterally Cardio: Rate: regular rate Rhythm: regular rhythm GI: Inspection: normal to inspection GI Palp: No No hepatosplenomegaly present Auscultation: normal bowel sounds Rectal Exam: deferred Skin: General skin exam: normal color Psych: Appearance: grossly normal Mental Status: mental status grossly normal Assessment and Plan Assessment and plan (1) Rectal bleeding: Code(s): K62.5 - Hemorrhage of anus and rectum Status: Acute Assessment and Plan: The patient is deemed a good candidate for the procedures. Consent signed. Will proceed. (2) Acid reflux: Qualifiers: Esophagitis presence: esophagitis presence not specified Qualified Code(s): K21.9 - Gastro-esophageal reflux disease without esophagitis Code(s): K21.9 - Gastro-esophageal reflux disease without esophagitis Status: Acute
--- NOTE | 2024-05-11 14:39 | WPDANESEPPF ---
Anes - Initial Pre Proc Eval Procedure: Operation Date: 05/11/24 14:00 Proposed Procedures p Esophagogastroduodenoscopy & Colonoscopy - Missael Dawkins MD Date/Time: 05/11/24 14:39 Surgeon: Missael Dawkins MD Pre Op Diagnosis: constipation, melena, GERD, hem of anus/rectum Patient Data Age: 19 Gender: F Height: 1.68 m Weight: 74.7 kg Last Vital Signs Temp 96.8 F L 05/11/24 13:39 Pulse 110 H 05/11/24 13:39 Resp 18 05/11/24 13:39 BP 119/75 05/11/24 13:39 Pulse Ox 100 05/11/24 13:39 O2 Del Method Room Air 05/11/24 13:39 Allergies Allergy/AdvReac Type Severity Reaction Status Date / Time No Known Allergies Allergy Verified 05/11/24 13:33 Home Medications ?Medication ?Instructions ?Recorded ?Confirmed ?Type escitalopram oxalate 10 mg tablet 10 mg PO DAILY #60 tabs 11/15/23 05/11/24 Rx (Lexapro) ibuprofen 600 mg tablet 600 mg PO Q6H PRN Pain Rated 4-6 11/15/23 04/29/24 Rx #30 tabs omeprazole 40 mg capsule,delayed 40 mg PO DAILY #30 caps 04/20/24 05/11/24 Rx release Laboratory Tests 05/11/24 13:39 POC Urine HCG, Qual Negative (Negative) Patient hx anesthesia problems: none Family hx anesthesia problems: none Results Review: All pre-operative results and documents have been reviewed as part of the pre-operative evaluation. [facility] Past Medical History Medical History Breech presentation contractions Depression Anxiety Family History Family History Mother Psoriasiform eczema Social History Social History Social History: vaped to prior to and is now decreased to occasional Smoking status: Former smoker Tobacco type: e-cigarettes/vaping Second hand tobacco smoke exposure: Yes Alcohol intake: never Alcohol use details: Social Substance use: never Substance use type: does not use Do You Feel Safe in your Home?: Yes Lack of Transportation: No Lack of Food: Never True Current Housing: I Have Housing Concerned About Future Housing: No Difficulty Paying Gas/Electric Bills: No Difficulty Paying for Meds: No Currently Unemployed: No Education: High School Diploma/GED Difficulty w/ Childcare or Family Care: No Living arrangements: with family Spiritual care concerns: No Anes - Eval Final PreProcedure Day of Procedure 05/11/24 14:39 Patient weight: normal Lungs: normal air movement Airway: Mallampati scale class II Neurological: alert and oriented Last oral intake: >/= 8 hours ASA classification: II Emergent: no Anesthetic plan: proceed Anesthesia type and monitoring: general GIVS and standard monitoring Results Review: All pre-operative results and documents have been reviewed as part of the pre-operative evaluation. Pt vapes daily. Informed Consent: The patient's anesthetic plan and its attendant risks and benefits were discussed with the patient/family/POA. Questions were solicited and answers provided to the satisfaction of the patient/family/POA.
[2024-05-11] MEDS: BENZOCAINE (*SP) 60 ML SPRAY CAN (HURRICAINE) 1 SPRAY MUCOUS MEM (14:43)
--- NOTE | 2024-05-11 14:56 | SUR.OPER ---
egd ended at 1450 and colon started at 1456
[2024-05-11 15:17] VITALS: BP 98/63; PULSE 96; RESP 23; O2SAT 100
[2024-05-11 15:27] VITALS: BP 99/66; PULSE 87; RESP 19; O2SAT 100
[2024-05-11 15:37] VITALS: BP 105/74; PULSE 80; RESP 19; O2SAT 100
== END 2024-05-11 15:51 | disposition home or self-care (01) ==
PROVIDERS: Anesthesiology; Referring Provider Nurse Practitioner Family; Visit Provider Internal Medicine Gastroenterology
PROC: 0DJ08ZZ Inspection of Upper Intestinal Tract, Via Natural or Artificial Opening Endoscopic (ICD-10-PCS; CPT 45378; principal; 2024-05-11 14:00)
DX: D12.8 Benign neoplasm of rectum (principal); K21.00 Gastro-esophageal reflux disease with esophagitis, without bleeding; F32.A Depression, unspecified; F41.9 Anxiety disorder, unspecified; Z79.1 Long term (current) use of non-steroidal anti-inflammatories (NSAID); Z87.891 Personal history of nicotine dependence
CPT/HCPCS: 43239; 45385; 88305; J2003; J2704; J7120